=== PATIENT | female | born 1985 | race Caucasian/White ===

== ENCOUNTER 2017-04-14 09:47 | Emergency (ER) | payer OTHER ==
[~2017-04-14] VITALS: Ht 160 cm; Wt 55.6 kg
[~2017-04-14 09:47] MED LIST: DOCU-30 PO; HYDR-3240 PO; HYDR2TAB29 PO; IBUP-1222 PO; LEVO100T41 PO; LIOT5TAB3 PO; OMEP10SU PO; OXYC5TAB3 PO; PREN1TAB60 PO; PROG100C4 PR; PROM25TA10 PO; PROM50SU6 RC
[2017-04-14] MEDS ORDERED: SODIUM CHLORIDE 0.9% 1,000ML IVBOLUS ONE (11:30)
[2017-04-14] MEDS ORDERED: MAALOX/HYOSCYAMINE/LIDOCAINE 45 ML BOTTLE PO ONE (11:30)
[2017-04-14] MEDS ORDERED: MORPHINE SULFATE 4 MG/ML, 1ML IVPush PRN (11:30)
[2017-04-14] MEDS ORDERED: ONDANSETRON 2MG/ML, 2ML IVPush ONE (11:30)
[2017-04-14] MEDS ORDERED: FAMOTIDINE 20 MG/2 ML IVP ONE (11:30)
[2017-04-14] MEDS ORDERED: MAALOX/HYOSCYAMINE/LIDOCAINE 45 ML BOTTLE ONE (11:48)
[2017-04-14] MEDS ORDERED: HYDROmorphone 1 MG/ML, 1ML ONE (11:48)
[2017-04-14] MEDS ORDERED: ONDANSETRON 2MG/ML, 2ML ONE (11:48)
[2017-04-14] MEDS ORDERED: FAMOTIDINE 20 MG/2 ML ONE (11:49)
[2017-04-14] MEDS ORDERED: HYDROmorphone 1 MG/ML, 1ML IV ONE (12:00)
[2017-04-14 12:12] LABS: ASPARTATE AMINO TRANSFERASE 18 U/L (15-37); BLOOD UREA NITROGEN 12 mg/dL (7-18)
[2017-04-14 13:24] LABS: HCG UR OBC PASS
[2017-04-14 13:56] VITALS: BP 93/57
== END 2017-04-14 13:58 | disposition home or self-care (01) ==
LOC: ED 13:22
DX: K58.0 Irritable bowel syndrome with diarrhea (principal); R10.84 Generalized abdominal pain; K21.9 Gastro-esophageal reflux disease without esophagitis; Z90.49 Acquired absence of other specified parts of digestive tract; Z88.1 Allergy status to other antibiotic agents; Z88.8 Allergy status to other drugs, medicaments and biological substances
CPT/HCPCS: 36415; 74022; 80053; 81003; 81025; 83690; 85025; 96361; 96374; 96375; 99285; J1170; J2405; J7030; S0028